=== PATIENT | male | born 1995 | race Caucasian/White ===

== ENCOUNTER 2019-03-04 20:35 | Emergency (ER) | payer BC ==
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
[2019-03-04 21:24] VITALS: BP 137/62
== END 2019-03-04 21:32 | disposition home or self-care (01) ==
LOC: MW.ED 20:35
DX: Z00.01 Encounter for general adult medical examination with abnormal findings (principal); I10 Essential (primary) hypertension; F10.129 Alcohol abuse with intoxication, unspecified
CPT/HCPCS: 93005; 99283-25

== ENCOUNTER 2019-03-06 06:53 | Emergency (ER) | payer BC ==
[2019-03-06 07:13] VITALS: BP 131/81
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
[2019-03-06 07:56] LABS: ACETAMINOPHEN <2.0 ug/mL
[2019-03-06 07:59] LABS: CHLORIDE,CL 102 mmol/L (98-107); SODIUM,NA 140 mmol/L (136-148)
[2019-03-06] MEDS ORDERED: LORazepam 1 MG Tab PO ONE (08:31)
== END 2019-03-06 08:53 ==
LOC: MW.ED 06:53
DX: F19.10 Other psychoactive substance abuse, uncomplicated (principal); F10.10 Alcohol abuse, uncomplicated; I10 Essential (primary) hypertension; Z79.899 Other long term (current) drug therapy; Y90.0 Blood alcohol level of less than 20 mg/100 ml
CPT/HCPCS: 36415; 80053; 80305; 81003; 84443; 85025; 99283; A9270; G0480

== ENCOUNTER 2019-06-21 22:34 | Observation (INO) | payer BC ==
[2019-06-21] MEDS ORDERED: Naloxone 0.4 MG/ML Syringe ONE (22:36)
[2019-06-21] MEDS ORDERED: Sodium Chloride 0.9% 2.5 ML Syringe FLUSH PRN (22:42)
[2019-06-21] MEDS ORDERED: Sodium Chloride 0.9% 1,000 ML IV ONE (22:42)
[2019-06-21] MEDS ORDERED: Sodium Chloride 0.9% 10 ML Syringe FLUSH PRN (22:42)
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
--- NOTE | 2019-06-21 22:53 | PCM.SN ---
- Free Text/Narrative Note: Called to standby for possible intubation and airway management on pt found unresponsive in field. Upon arrival patient maintaining patent airway with nasal airway in plac.. see ER physician note.
[2019-06-21] MEDS ORDERED: Naloxone 0.4 MG/ML Syringe IVPUSH ONE (22:54)
[2019-06-21 23:14] LABS: BLOOD UREA NITROGEN,BUN 11 mg/dL (7.0-18.0); CARBON DIOXIDE,CO2 21.3 mmol/L (21.0-32.0); CHLORIDE,CL 104 mmol/L (98-107); GLUCOSE RANDOM 302 mg/dL (74-106); LIPASE 185 U/L (73-393); SODIUM,NA 141 mmol/L (136-148)
--- NOTE | 2019-06-21 23:15 | CR ---
Indication: Unresponsive. Technique: Single AP portable view of the chest was obtained. Comparison: September 27, 2018. Findings: The heart is normal in size. The lungs are clear. No infiltrate, pleural effusion, or pneumothorax is identified. Impression: No acute cardiopulmonary process Dictated by Kati Lin MD @ Jun 21 2019 11:13PM Signed by Dr. Kati Lin @ Jun 21 2019 11:14PM
[2019-06-21 23:16] LABS: ACETAMINOPHEN <2.0 ug/mL
--- NOTE | 2019-06-22 00:11 | CT ---
INDICATION: Loss of consciousness. COMPARISON: None available. TECHNIQUE: CT examination of the head was performed with 3 mm thick axial sections without intravenous contrast. Images were obtained from the vertex of the skull through the skull base, and I examined the images with the brain and bone windows. Please note that all CT scans at this facility use dose modulation, iterative reconstruction, and/or weight-based dosing when appropriate to reduce radiation dose to as low as reasonably achievable. FINDINGS: : The brain is normal in appearance for the patient`s age on today`s study, with no sign of mass lesion, mass effect, hemorrhage, or edema. The ventricles and sulci are normal in appearance for the patient`s age. The visualized portions of the orbits are normal in appearance. The visualized portions of the paranasal sinuses and mastoids are clear. The osseous structures are normal in their appearance with no sign of abnormality in the skull base or calvarium. IMPRESSION: Normal noncontrast CT of the head for the patient`s age. Please note that all CT scans at this facility use dose modulation, iterative reconstruction, and/or weight-based dosing when appropriate to reduce radiation dose to as low as reasonably achievable. Dictated by Troy Olguin MD @ Jun 22 2019 12:08AM Signed by Dr. Troy Olguin @ Jun 22 2019 12:10AM
[2019-06-22] MEDS ORDERED: MVI, Adult with Vitamin K 10 ML, Thiamine 100 MG, Folic Acid 1 MG in Sodium Chloride 0.... IV ONE ×4 (00:30)
[2019-06-22] MEDS ORDERED: Ondansetron 4 MG/2 ML SDV ONE (01:49)
[2019-06-22] MEDS ORDERED: Ondansetron 4 MG/2 ML SDV IVPUSH ONE (01:58)
[2019-06-22] MEDS ORDERED: Ketorolac 15 MG/ML SDV IVPUSH PRN (03:03)
[2019-06-22] MEDS ORDERED: Naloxone 0.4 MG/ML Syringe IVPUSH PRN (03:04)
[2019-06-22] MEDS ORDERED: Sodium Chloride 0.9% 1,000 ML IV SCH (03:15)
[2019-06-22 09:57] LABS: BLOOD UREA NITROGEN,BUN 10 mg/dL (7.0-18.0); CARBON DIOXIDE,CO2 25.9 mmol/L (21.0-32.0); CHLORIDE,CL 107 mmol/L (98-107); GLUCOSE RANDOM 103 mg/dL (74-106); SODIUM,NA 143 mmol/L (136-148)
[2019-06-22] MEDS ORDERED: Aspirin 81 MG Tab.Chew PO SCH (10:45)
--- NOTE | 2019-06-22 12:10 | PCM.HP.2 ---
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 Order [RC] STAT Care 06/21/19 22:42 Active Oxygen Therapy [RC] ASDIRECTED Care 06/22/19 03:01 Active Pulse Oximetry [RC] ASDIRECTED Care 06/21/19 22:40 Active Ready for Discharge [RC] PER UNIT ROUTINE Care 06/22/19 12:15 Active Dealer Support Technician Discontinue [Cardiac Monitoring Care 06/22/19 12:36 Active Discontinue] [RC] Click to Edit Telemetry Monitoring [Cardiac Monitoring] [RC] Q8H Care 06/22/19 01:50 Active Vital Signs [RC] Q4H Care 06/22/19 04:00 Active PT Evaluation and Treatment [CONS] Routine Cons 06/22/19 10:36 Active Saline Lock Insert [OM.PC] Stat Oth 06/21/19 22:40 Ordered Assessment/Plan Comment:: I performed a history and physical exam of the patient and discussed management with resident. I have reviewed the residents note and agree with documented findings and plan unless otherwise specified in my note.
[2019-06-22 12:22] VITALS: BP 122/60; PULSE 91
== END 2019-06-22 12:51 | disposition home or self-care (01) ==
LOC: MW.ED 22:34 → MW.MS 06-22 01:34
PROVIDERS: ADMIT Student in an Organized Health Care Education/Training Program; ATTEND Student in an Organized Health Care Education/Training Program
DX: R55 Syncope and collapse (principal); F10.10 Alcohol abuse, uncomplicated; I10 Essential (primary) hypertension; E87.6 Hypokalemia; N17.9 Acute kidney failure, unspecified; R74.0 Nonspecific elevation of levels of transaminase and lactic acid dehydrogenase [LDH]; F17.210 Nicotine dependence, cigarettes, uncomplicated; Z79.899 Other long term (current) drug therapy
CPT/HCPCS: 36415; 70450; 71045; 80053; 80305; 80320; 80329; 81001; 82550; 82962; 83690; 84443; 84484; 85025; 93005; 96361; 96365; 96375; 99285; A9270; J1885; J2405; J3411; J7030; 99291; G0378; G0480

== ENCOUNTER 2019-07-05 22:41 | Emergency (ER) | payer BC ==
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
[2019-07-06 02:35] VITALS: BP 159/92; PULSE 77
== END 2019-07-06 02:29 | disposition home or self-care (01) ==
LOC: MW.ED 22:41
DX: R07.89 Other chest pain (principal); I10 Essential (primary) hypertension; F17.210 Nicotine dependence, cigarettes, uncomplicated; Z79.899 Other long term (current) drug therapy
CPT/HCPCS: 36415; 84484; 93005; 99285-25

== ENCOUNTER 2019-11-06 15:48 | Emergency (ER) | payer BC ==
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
[2019-11-06 19:41] VITALS: BP 138/74; PULSE 84
== END 2019-11-06 16:54 | disposition home or self-care (01) ==
LOC: MW.ED 15:48
DX: Z02.83 Encounter for blood-alcohol and blood-drug test (principal); I10 Essential (primary) hypertension; Z79.899 Other long term (current) drug therapy
CPT/HCPCS: 82962; 93005; 99282; 99285-25

== ENCOUNTER 2021-06-19 08:20 | Emergency (ER) | payer SELFPAY ==
[2021-06-19] MEDS ORDERED: Ibuprofen 800 MG Tab PO ONE (08:51)
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
--- NOTE | 2021-06-19 10:09 | CR ---
Indication: Chest Pain Comparison: Single-view chest [facility] [id number] Technique: Single AP view chest Findings: There is mild hyperinflation. There is no focal consolidation, effusion, or pneumothorax. The cardiomediastinal silhouette is within normal limits. The bony thorax is grossly intact. Impression: Mild hyperinflation without dense consolidation or effusion. Dictated by Reno Hurtado MD @ 06/19/2021 10:06:34 AM (Electronically Signed)
[2021-06-19 10:45] VITALS: BP 128/82; PULSE 94
== END 2021-06-19 10:18 ==
LOC: MW.ED 08:20
DX: R07.89 Other chest pain (principal); I10 Essential (primary) hypertension; Z79.899 Other long term (current) drug therapy
CPT/HCPCS: 71045; 71045-26; 93005; 99285-25

== ENCOUNTER 2022-04-04 11:46 | Emergency (ER) | payer OTHER ==
[2022-04-04] MEDS ORDERED: Lidocaine 1% 5 ML VIAL INJECT ONE (14:34)
[2022-04-04 16:09] VITALS: BP 112/57; PULSE 62
== END 2022-04-04 16:09 | disposition home or self-care (01) ==
LOC: MW.ED 11:46
DX: S61.012A Laceration without foreign body of left thumb without damage to nail, initial encounter (principal); I10 Essential (primary) hypertension; W26.8XXA Contact with other sharp object(s), not elsewhere classified, initial encounter; Y92.69 Other specified industrial and construction area as the place of occurrence of the external cause
CPT/HCPCS: 12002; 73130-26-LT; 73130-LT; 99282; 99283

== ENCOUNTER 2024-05-11 20:31 | Emergency (ER) | payer SELFPAY ==
[2024-05-11 21:05] LABS: BASOPHILS ABSOLUTE AUTO 0.03 K/uL (0.00-0.20); BASOPHILS PERCENT AUTO 0.3 % (0.0-1.0); EOSINOPHILS ABSOLUTE AUTO 0.08 K/uL (0.00-0.45); EOSINOPHILS PERCENT AUTO 0.9 % (0.0-6.0); HEMATOCRIT 40.4 % (42.0-52.0); HEMOGLOBIN 13.3 g/dL (14.0-18.0); IMMATURE GRAN ABSOLUTE AUTO 0.02 K/uL (0.00-0.05); IMMATURE GRAN PERCENT AUTO 0.2 % (0.0-0.4); LYMPHOCYTES ABSOLUTE AUTO 2.47 K/uL (1.00-4.80); LYMPHOCYTES PERCENT AUTO 27.3 % (24.0-44.0); MEAN CORPUSCULAR HEMOGLOBIN 30.6 pg (28.0-32.0); MEAN CORPUSCULAR HGB CONC 32.9 g/dL (32.0-36.0); MEAN CORPUSCULAR VOLUME 92.9 fL (83.0-99.0); MEAN PLATELET VOLUME 9.7 fL (9.4-12.4); MONOCYTES ABSOLUTE AUTO 0.54 K/uL (0.00-0.80); NEUTROPHILS PERCENT AUTO 65.3 % (41.0-71.0); PLATELET COUNT,PLT 259 K/uL (150-400); RED BLOOD CELL COUNT 4.35 M/uL (4.52-5.90); WHITE BLOOD CELL COUNT,WBC 9.04 K/uL (3.9-11.3)
[2024-05-11] MEDS: Sodium Chloride 0.9% 1,000 ML IV ONE (21:28)
[2024-05-11] MEDS: Bacitracin Oint 28.35 GM Tube TOP STA (21:28)
[2024-05-11 21:33] LABS: A/G RATIO 1.4 (0.9-1.6); ALANINE AMINOTRANSFERASE,ALT 18 IU/L (14-63); ALBUMIN 4.2 g/dL (3.4-5.0); ALKALINE PHOSPHATASE 55 U/L (46-116); ASPARTATE AMNIOTRANSFERASE,AST 13 IU/L (15-37); BILIRUBIN TOTAL 0.2 mg/dL (0.2-1.0); BLOOD UREA NITROGEN,BUN 7 mg/dL (7.0-18.0); CALCIUM 8.9 mg/dL (8.5-10.1); CARBON DIOXIDE,CO2 30.5 mmol/L (21.0-32.0); CHLORIDE,CL 105 mmol/L (98-107); CREATINE KINASE,CK 116 U/L (26-308); CREATININE 1.2 mg/dL (0.8-1.3); ETHANOL BLOOD MEDICAL <3 mg/dL; GLUCOSE RANDOM 99 mg/dL (74-106); MAGNESIUM 1.6 mg/dL (1.8-2.4); POTASSIUM,K 3.6 mmol/L (3.5-5.1); PROTEIN TOTAL,TP 7.2 g/dL (6.4-8.2); SODIUM,NA 139 mmol/L (136-148)
[2024-05-11 21:38] LABS: ESTIMATED GFR 84 mL/min (>60)
[2024-05-11] MEDS: Ondansetron 4 MG/2 ML SDV IVPUSH ONE (22:43)
[2024-05-11 22:55] LABS: APPEARANCE,URINE CLEAR; BILIRUBIN,URINE NEGATIVE (NEGATIVE); COLOR,URINE YELLOW; GLUCOSE,URINE NEGATIVE (NEGATIVE); KETONES,URINE NEGATIVE (NEGATIVE); LEUKOCYTE ESTERASE,URINE NEGATIVE (NEGATIVE); NITRITE,URINE NEGATIVE (NEGATIVE); OCCULT BLOOD,URINE NEGATIVE (NEGATIVE); PROTEIN,URINE NEGATIVE (NEGATIVE); UROBILINOGEN,URINE 0.2 EU/dL (<2.0)
[2024-05-11 23:04] LABS: AMPHETAMINES SCREEN, URINE NEGATIVE (CUTOFF=500); BARBITURATE SCREEN,URINE NEGATIVE (CUTOFF=200); BENZODIAZEPINES SCREEN,URINE NEGATIVE (CUTOFF=150); BUPRENORPHINE SCREEN,URINE NEGATIVE (CUTOFF=10); METHADONE SCREEN, URINE NEGATIVE (CUTOFF=200); METHAMPHETAMINES SCREEN, URINE NEGATIVE (CUTOFF=500); OXYCODONE SCREEN,URINE NEGATIVE (CUT0FF=100); PCP SCREEN,URINE NEGATIVE (CUTOFF=25); THC SCREEN,URINE 20 NG/ML PRESUMPTIVE POSITIVE (CUTOFF=50)
[2024-05-12 00:40] VITALS: BP 119/71; PULSE 67
== END 2024-05-12 00:35 | disposition home or self-care (01) ==
LOC: MW.ED 20:31
DX: R55 Syncope and collapse (principal); S06.0X9A Concussion with loss of consciousness of unspecified duration, initial encounter; I10 Essential (primary) hypertension; X58.XXXA Exposure to other specified factors, initial encounter; Z75.8 Other problems related to medical facilities and other health care
CPT/HCPCS: 36415; 70450; 72125; 80053; 80305; 80307; 81003; 82550; 83735; 84484; 85025; 93005; 96361; 96374; 99285; A9270; J2405; J7030; 93010; 99283

== ENCOUNTER 2024-05-23 14:58 | Emergency (ER) | payer MEDICAID ==
[2024-05-23 15:04] VITALS: BP 124/75; PULSE 98
[2024-05-23] MEDS: Ondansetron 4 MG/2 ML SDV ONE (15:19)
[2024-05-23] MEDS: Lidocaine 1% 5 ML VIAL INJECT ONE (15:22)
[2024-05-23] MEDS: Sodium Chloride 0.9% 1,000 ML IV ONE (15:22)
[2024-05-23] MEDS: Diphtheria,Pertussis(Acell),Tetanus Vaccine 0.5 ML Syringe IM ONE (15:22)
[2024-05-23] MEDS: Ondansetron 4 MG/2 ML SDV IVPUSH ONE (15:23)
[2024-05-23] MEDS: Morphine 4 MG/ML Syringe IVPUSH ONE (15:23)
[2024-05-23 15:28] LABS: HEMATOCRIT 42.4 % (42.0-52.0); HEMOGLOBIN 14.3 g/dL (14.0-18.0); MEAN CORPUSCULAR HGB CONC 33.7 g/dL (32.0-36.0); MEAN PLATELET VOLUME 9.9 fL (9.4-12.4); PLATELET COUNT,PLT 381 K/uL (150-400); RED BLOOD CELL COUNT 4.61 M/uL (4.52-5.90); WHITE BLOOD CELL COUNT,WBC 11.34 K/uL (3.9-11.3)
[2024-05-23 15:33] LABS: A/G RATIO 1.4 (0.9-1.6); ALBUMIN 4.6 g/dL (3.4-5.0); BILIRUBIN TOTAL 0.3 mg/dL (0.2-1.0); CALCIUM 9.1 mg/dL (8.5-10.1); CARBON DIOXIDE,CO2 19.8 mmol/L (21.0-32.0); CREATININE 1.4 mg/dL (0.8-1.3); EST CRCL DRUG DOSING (CG) 85.45 mL/min; POTASSIUM,K 2.9 mmol/L (3.5-5.1); PROTEIN TOTAL,TP 7.9 g/dL (6.4-8.2)
[2024-05-23 15:45] LABS: LYMPHOCYTES ABSOLUTE MAN 5.78 K/uL (1.00-4.80); LYMPHOCYTES PERCENT MAN 51 % (24-44); MONOCYTES ABSOLUTE MAN 0.68 K/uL (0.00-0.80); MONOCYTES PERCENT MAN 6 % (0-8); SEG NEUTROPHILS PERCENT MAN 45 % (41-71)
[2024-05-23] MEDS: Potassium Chloride 20 MEQ Tab.ER PO ONE (18:32)
[2024-05-23] MEDS: Acetaminophen/HYDROcodone 325-5 MG Tab PO ONE (18:32)
== END 2024-05-23 19:01 | disposition home or self-care (01) ==
LOC: MW.ED 14:58
DX: S09.90XA Unspecified injury of head, initial encounter (principal); S01.112A Laceration without foreign body of left eyelid and periocular area, initial encounter; F12.10 Cannabis abuse, uncomplicated; E87.6 Hypokalemia; R56.9 Unspecified convulsions; I10 Essential (primary) hypertension; F17.210 Nicotine dependence, cigarettes, uncomplicated; Z79.899 Other long term (current) drug therapy; Z75.8 Other problems related to medical facilities and other health care; W01.198A Fall on same level from slipping, tripping and stumbling with subsequent striking against other object, initial encounter; Y93.29 Activity, other involving ice and snow; Z23 Encounter for immunization
CPT/HCPCS: 12014; 36415; 70450; 70486; 71045; 72125; 80053; 83735; 85025; 90471; 90715; 93005; 96361; 96374; 96375; 99285; A9270; J2270; J2405; J7030; J3490